=== PATIENT | male | born 1965 | race African-American/Black ===

== ENCOUNTER 2020-02-08 07:28 | Day surgery (SDC) | payer OTHER ==
[~2020-02-08] VITALS: Ht 182.9 cm; Wt 136.1 kg
--- NOTE | ~2020-02-08 | OP ---
PATIENT NAME: MART NUNEZ MEDICAL RECORD: [id number] :69 LOCATION:[facility] ADMISSION DATE: SURGEON: TIGIST WOODY MD DATE OF OPERATION: 02/08/2020 PREOPERATIVE DIAGNOSES: Bilateral chronic pansinusitis, bilateral nasal obstruction, bilateral nasal polyposis, and bilateral inferior turbinate hypertrophy. POSTOPERATIVE DIAGNOSES: Bilateral chronic pansinusitis, bilateral nasal obstruction, bilateral nasal polyposis, and bilateral inferior turbinate hypertrophy. PROCEDURE: Bilateral endoscopic ethmoidectomy, bilateral endoscopic middle meatal antrostomy, bilateral inferior turbinate reduction, bilateral endoscopic nasal polypectomy. SURGEON: Tigist Woody MD ANESTHESIA: General orotracheal. BLOOD LOSS: Less than 10 cc. FINDINGS: Bilateral nasal polyps and cultures from the left maxillary sinus. COMPLICATIONS: None. NASAL PACKING: None. DISPOSITION: Recovery stable. DESCRIPTION OF PROCEDURE: He was brought to the operating room and placed in supine position, sedated and intubated by anesthesia. The table was turned 90 degrees. Head drape was applied and he was positioned for nasal surgery. Both sides of the nose were examined using a headlight and nasal speculum. The inferior turbinates, floor of the nose and polyps were injected with a total of less than 2 mL of 1% lidocaine with 1:100,000 epinephrine and 3 Afrin pledgets were placed in each side of the nose. He was positioned, prepped and draped in the usual fashion for nasal surgery. Then, all the left-sided pledgets were removed. A Angel forceps was used to remove several large pieces of nasal polyp for path and then a microdebrider was used to remove polyps from the entire nasal cavity to expose normal nasal anatomy removed from the middle meatus, superior meatus between the middle turbinate and the septum and the posterior nasal cavity until the entire middle turbinate was delineated, some of that had some polypoid changes that were removed slightly, but the middle turbinate was left intact. It was medialized a little bit and then removed a massive amount of polyps from the middle meatus and continued on inferomedially into the ethmoid cavity, removing massive polyps from the ethmoids as well moving posteriorly and then with a little pressure there was obvious thick inspissated secretions, possibly infected coming from the maxillary sinus. A Nirmal trap and large curved olive tip suction were used to insert into the maxillary sinus and evacuated some material for culture. Then, a microdebrider was used to take down some polypoid tissues exposing the ostia and enlarge it somewhat. He was then irrigated repeatedly with saline. The rest of the ethmoidectomy was completed with the microdebrider as well as some polyps removed from the OPERATIVE REPORT [id number] MART NUNEZ superior meatus and posterior nasal cavity. Once everything was cleaned and identified, Afrin pledgets were placed on that side of the nose. Then, all the Afrin pledget was removed from the right side of the nose and the same procedure was completed removing nasal polyps until all anatomy was exposed and then opened up the middle meatus and move the turbinate over and evacuate the polyps and continue posteriorly with ethmoidectomy. Maxillary ostia was opened up, again it was irrigated and suction, but there were not any actual secretions in the maxillary sinus on the right side just mucosal thickening that was cleaned up. There was some posterior nasal polyps removed from the superior meatus as well and then the right side was packed with Afrin pledgets as well. Then, microdebrider was used to remove some of the inferior redundant portion and polypoid changes from the inferior turbinates. Suction cautery was used to stop any bleeding and both outfractured with a Sampson elevator. I then removed the Afrin pledgets from both ethmoid cavities cleaned up some bone fragments with upbiting forceps and backbiter as well as a microdebrider and cleaned up both ethmoid cavities nicely and then irrigated both maxillary sinuses and ethmoid cavities repeatedly with a large curved olive tip suction and 30 cc syringe. Used this suction cautery a little bit were some polyps had been removed from the middle turbinates. Once the field was relatively clean and dry, used some mupirocin ointment and some FloSeal in the ethmoid cavity and around the middle turbinates. There was really no bleeding. The nasopharynx was suctioned. With the field clean and dry, he was awakened, extubated, and transported to recovery in good condition. No complications. TRANSINT:[id number] Voice Confirmation ID: [id number] DOCUMENT ID: [id number] TIGIST WOODY MD CC: [id number] DICTATION DATE: 02/08/201226 FIELD ATTENDANT: 02/08/202209 [facility] 02/08/20 [facility] [address] [place] [address]
--- NOTE | ~2020-02-08 | HP ---
PATIENT: MART DIALLO MEDICAL RECORD: [id number] ACCOUNT: [id number] LOCATION:[facility] : 69 ADMISSION DATE: 02/08/20 PCP: HISTORY AND PHYSICAL EXAMINATION HISTORY OF PRESENT ILLNESS: Mr. Diallo is 54. He has had sinonasal problems all his life. He has extensive sinonasal polyposis, nasal obstruction, headaches and rhinitis. He is being admitted for bilateral nasal polypectomy, bilateral middle meatal antrostomy, bilateral ethmoidectomy. PAST MEDICAL HISTORY: Otherwise fairly negative. SOCIAL HISTORY: He is not a smoker. ALLERGIES: No known drug allergies. PHYSICAL EXAMINATION: GENERAL: He is healthy appearing. FACE: Normal, symmetric, no lesions. EYES: Sclerae and conjunctivae are normal. EARS: Canals and TMs are normal. NOSE: Got large inferior turbinates, obvious polyps filling the nasal cavity bilaterally, which is a tiny airway on the floor of the nose. ORAL CAVITY AND OROPHARYNX: Palate is normal. Tongue protrudes in the midline. NECK: No masses. No adenopathy. CHEST: Clear. CARDIOVASCULAR: Regular rate and rhythm, no murmur. EXTREMITIES: Normal. IMPRESSION: Extensive sinonasal polyposis, nasal obstruction, turbinate hypertrophy, chronic sinusitis. PLAN: Bilateral nasal polypectomy, bilateral middle meatal antrostomy, bilateral ethmoidectomy. TRANSINT:[id number] Voice Confirmation ID: [id number] DOCUMENT ID: [id number] TIGIST MORENO MD CC: [id number] DICTATION DATE: 02/05/20 1033 [employer] MANAGER: 02/05/20 [id number] [place] [address]
[2020-02-08] MEDS ORDERED: ALLEGRA D PO (08:27)
[2020-02-08] MEDS ORDERED: FLUTICASONE PRO16 GM NASAL (08:28)
[2020-02-08 08:39] VITALS: BP 114/67; Ht 182.9 cm; Wt 136.1 kg
--- NOTE | 2020-02-08 14:45 | NUR ---
DC INSTRUCTIONS GIVEN TO PT/FAMILY. STATE UNDERSTANDING. PT STILL STATES HAVING PAIN AND DROWSINESS. HE SAYS HE'S NOT READY TO BE DC'D YET. WILL CONTINUE TO MONITOR.
--- NOTE | 2020-02-08 15:19 | NUR ---
DC'D IV CATH FULLY INTACT. WILL DC PT SHORTLY.
--- NOTE | 2020-02-08 15:20 | NUR ---
PT LEFT UNIT VIA WC AT 1530
== END 2020-02-08 15:30 | disposition home or self-care (01) ==
LOC: D.OPS 07:28 → D.PAN 10:20 → D.OPS 10:20
PROVIDERS: ATTEND Otolaryngology
DX: J32.4 Chronic pansinusitis (principal); J34.89 Other specified disorders of nose and nasal sinuses; J33.9 Nasal polyp, unspecified; J34.3 Hypertrophy of nasal turbinates; R51 Headache; J31.0 Chronic rhinitis